=== PATIENT | male | born 1970 | race Hispanic/Latino ===

== ENCOUNTER → 2019-02-21 | Day surgery (SDC) | payer BC ==
[~2019-02-21] MED LIST: BUPIVACAINE HCL 0.5% INJ 30 ML VIAL INJ ONE; DEXAMETHASONE SOD PHOS INJ 4 MG/ML VIAL ONE; ESIDRIX25 MG PO; FENTANYL CITRATE/PF 100MCG/2 ML INJ ONE; HYDRALAZINE HCL 20 MG/ML VIAL ONE; KETOROLAC TROMETHAMINE 30 MG/ML VIAL ONE; LIDOCAINE HCL 2% LOCAL INJ 5 ML SDV VIAL INJ ONE; LISINOPRIL-HCT1 EACH PO; MIDAZOLAM HCL 2 MG/2 ML VIAL ONE; ONDANSETRON HCL INJ 2MG/ML 2ML 2 MG/ML VIAL ONE; PROPOFOL IV EMULSION 10 MG/ML 20 ML VIAL ONE; SEVOFLURANE INHAL SOLN 250 ML PEN BTL ONE
[2019-02-21 09:50] VITALS: BP 134/88
[2019-02-21] MEDS: CEFTRIAXONE SOD 1 GM/NS 50 ML 50 ML IV ONE (11:20)
--- NOTE | 2019-02-23 19:07 | Operative Report ---
DATE OF PROCEDURE: 02/21/2019 SURGEON: Cristian Pierre MD PREOPERATIVE DIAGNOSIS: Right hydrocele. POSTOPERATIVE DIAGNOSIS: Right hydrocele. OPERATIVE PROCEDURE: Right hydrocelectomy. ANESTHESIA: General anesthesia. ESTIMATED BLOOD LOSS: Minimal. INDICATIONS: Mr. 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 He now presents for definitive surgical management of this problem. PROCEDURE IN DETAIL: The patient was brought into the operating room, placed supine position. After initiation of general anesthesia, he was prepped and draped in the usual sterile fashion. A horizontal incision was made over the right hemiscrotum and dissection was carried out through the layers of the scrotum. The tunica vaginalis was opened and the testicle was brought into the field. The appendix testis and appendix epididymis were both removed using electrocautery device. Approximately 550 mL of straw-colored fluid was removed. The cut edges of the tunica vaginalis were fulgurated and then oversewn using a running chromic suture. The testicle was then returned to its position in the scrotum and a quarter-inch Angelia drain was placed at the inferior most portion in the scrotum. This was secured to the skin using a chromic suture. The scrotum was then closed in layers using a running chromic stitch. The skin was also closed using a running chromic stitch. The wound was then covered with Telfa, sterile fluffs and placed in a scrotal support. Anesthesia was then reversed and the patient was transferred to a bed and taken to the postanesthesia care unit in good condition. Of note, the needle and instrument count was correct at the conclusion of the case. Cristian Pierre MD HLW/MODL /[id number]
== END | disposition home or self-care (01) ==
LOC: OR 05:45
PROVIDERS: ATTEND Urology
DX: N43.3 Hydrocele, unspecified (principal); I10 Essential (primary) hypertension
CPT/HCPCS: 55040; 93005; J0360; J0696; J1100; J1885; J2001; J2405; J2250; J2704; J3010